=== PATIENT | male | born 1950 | race Caucasian/White ===

== ENCOUNTER → 2016-06-06 13:51 | Outpatient (CLI) | payer MEDICARE, OTHER ==
[~2016-06-06 13:51] MED LIST: EFFEXOR XR150 MG PO; HYDROCODON-ACE1 EAC7 PO; KLONOPIN1 MG PO; NEURONTIN 300300 MG PO; OXYCONTIN10 MG PO; VOLTAREN75 MG PO
[2016-06-25 07:45] VITALS: BMI 30.9
== END | disposition home or self-care (01) ==
LOC: D.MRI 13:51
DX: M25.511 Pain in right shoulder (principal)

== ENCOUNTER 2016-06-25 06:15 | Day surgery (SDC) | payer MEDICARE, OTHER ==
[2016-06-24 13:51] LABS: MCH 30.9 pg (26.0-34.0); MCHC 33.3 g/dL (31.0-37.0); MCV 92.8 fL (80.0-100.0); MEAN PLATELET VOLUME 11.2 fL (7.4-10.4); RBC 4.85 10x6/uL (4.20-6.10); RDW 13.9 % (11.5-14.5); WBC 6.8 10x3/uL (4.8-10.8)
[~2016-06-25] VITALS: Ht 162.6 cm; Wt 81.6 kg
[~2016-06-25 06:15] MED LIST changes: -OXYCONTIN10 MG PO
[2016-06-25 07:45] VITALS: BP 129/81; Ht 162.6 cm; Wt 81.6 kg
[2016-06-25] MEDS ORDERED: OXYCONTIN10 MG PO (10:02)
--- NOTE | 2016-06-25 10:29 | NUR ---
PRE OP BP 150/90
--- NOTE | 2016-06-25 11:15 | NUR ---
1045-RECD FROM PACU. DROWSY, AROUSES EASILY. SLINGSHOT IN PLACE. RESP WITH EASE. 1100-PRESCRIPTION GIVEN TO PER HER REQUEST TO GET FILLED PRIOR TO DISCHARGE.
--- NOTE | 2016-06-25 13:10 | NUR ---
ASSISTED PATIENT TO AMBULATE TO BATHROOM TO VOID, PATIENT AMBULATES WITHOUT UNSTEADINESS OR DIZZINESS. LEFT WRIST PIV DC'D WITH TIP INTACT. PATIENT DRESSING IN PERSONAL CLOTHING WITH SPOUSE'S ASSISTANCE
--- NOTE | 2016-06-25 13:30 | NUR ---
DISCHARGED HOME VIA WHEELCHAIR TO PRIVATE VEHICLE WITH SPOUSE
--- NOTE | 2016-06-25 16:33 | OP ---
PATIENT NAME: LUCA ORTEGA MEDICAL RECORD: [id number] :50 LOCATION:[facility] AD[facility] DATE: SURGEON: CRISTIN LUO MD DATE OF OPERATION: 06/25/2016 PREOPERATIVE DIAGNOSES: Right shoulder rotator cuff tear, acromioclavicular joint degenerative joint disease and impingement. POSTOPERATIVE DIAGNOSES: Right shoulder rotator cuff tear, acromioclavicular joint degenerative joint disease and impingement. PROCEDURE PERFORMED: Right shoulder arthroscopic decompression, distal clavicle excision with open rotator cuff repair. SURGEON: Rocky Luo MD ANESTHESIA: General with interscalene block for postop pain. CONDITION: The patient tolerated the procedure well, was transferred to the recovery room in stable condition at termination of the procedure. INDICATIONS: This is a very pleasant 65-year-old gentleman with a significant supraspinatus tear. This has gotten significantly painful with loss of motion and loss of function. He wanted to go ahead and proceed with a repair. We discussed risks, benefits, and alternatives including blood loss, scar, pain, need for further procedure, anesthesia risks, failure of the repair. He understood and wished to proceed. OPERATIVE REPORT: The patient was taken to the operating room, placed in a supine position. General anesthesia was obtained. His right shoulder was confirmed to be the correct shoulder. He was prepped and draped in normal fashion. He did receive the interscalene block in the preop holding area. In the operating room, he was placed in a beach chair position with the head positioning shoulder device. The right shoulder was then prepped and draped in standard fashion. Again, timeout was performed confirming the right shoulder to be the correct shoulder. Portal sites were then marked. The posterior portal was established. The scope was placed into the posterior portal. The anterior portal was made under direct visualization. The glenohumeral joint was inspected. There was a little bit of fraying in the subscapularis, but overall it was intact. The biceps tendon was intact. The glenoid had some fraying around the rim of the labrum, but otherwise the glenohumeral joint itself looked good. Coming up to the top, there was a very significant, although not retracted supraspinatus tear. I did take the scope out, placed it in the subacromial space, and made a lateral portal, and through the lateral portal, I debrided the soft tissue, down to visualizing the undersurface of the acromion and the AC joint. There was large spurs extending down off both. These were removed with the bur as well as through the anterior portal. I did remove some of the distal clavicle opening the space between the clavicle and the acromion. ____ I extended my lateral portal and split the muscle, went down, and found the cuff tear, debrided the edges of this, roughened up the footprint area, then placed 3 suture punch sutures into the tear, brought these over two 4.5 [place] suture anchors and put this down laterally. This went down very well. When checked, I did not see anything else. I then copiously irrigated, closed with 2-0 Vicryl, then 3-0 Prolene, half inch Steri-Strips and a soft dressing. He was awakened and transferred to recovery room in stable condition, having OPERATIVE REPORT [id number] ORTEGALUCA tolerated the procedure well. We will have him with minimal motion, passive motion, only pendulums and see him back in the office in about 2-3 weeks. TRANSINT:[id number] Voice Confirmation ID: [id number] DOCUMENT ID: [id number] CRISTIN LUO MD at 1633 CC: [id number] DICTATION DATE: 06/25/16 1009 SCREEN PRINTER HELPER: 06/25/16 1202 [facility] [address] [place] [address]
== END 2016-06-25 13:30 | disposition home or self-care (01) ==
LOC: D.OPS 06:15 → D.PAN 08:15 → D.OPS 09:20 → D.PAN 13:00 → D.OPS 13:30
PROVIDERS: Anesthesiology
DX: M75.121 Complete rotator cuff tear or rupture of right shoulder, not specified as traumatic (principal); M75.41 Impingement syndrome of right shoulder; M25.511 Pain in right shoulder; F17.200 Nicotine dependence, unspecified, uncomplicated; J45.909 Unspecified asthma, uncomplicated; G47.30 Sleep apnea, unspecified; K44.9 Diaphragmatic hernia without obstruction or gangrene

== ENCOUNTER → 2016-08-29 19:15 | Outpatient (CLI) | payer MEDICARE, OTHER ==
[2016-06-25 07:45] VITALS: BMI 30.9
[~2016-08-29 19:15] MED LIST changes: +OXYCONTIN10 MG PO
== END | disposition home or self-care (01) ==
LOC: D.SLEEP 19:15
DX: G47.33 Obstructive sleep apnea (adult) (pediatric) (principal)

== ENCOUNTER 2020-07-16 13:03 | Inpatient (IN) | payer MEDICARE, OTHER ==
[~2020-07-16] VITALS: Ht 162.6 cm; Wt 75.0 kg
[2020-07-16 14:17] LABS: BASOPHILS 0.4 % (0-2); EOSINOPHILS 2.1 % (0-7); HEMATOCRIT 46.3 % (42.0-54.0); HEMOGLOBIN 15.2 g/dL (13.5-17.5); LYMPHOCYTE ABS# 2.78 10x3/uL (1.32-3.57); LYMPHOCYTES 38.1 % (15-50); MCH 31.4 pg (26.0-34.0); MCHC 32.8 g/dL (31.0-37.0); MCV 95.7 fL (80.0-100.0); MEAN PLATELET VOLUME 10.9 fL (7.4-10.4); MONOCYTES 6.6 % (2-11); NEUTROPHIL ABS# 3.86 10x3/uL (1.78-5.38); NEUTROPHILS 52.8 % (40-80); PLATELET COUNT 198 10x3/uL (130-400); RBC 4.84 10x6/uL (4.20-6.10); RDW 14.2 % (11.5-14.5); WBC 7.3 10x3/uL (4.8-10.8)
[2020-07-16 14:32] LABS: ANION GAP 14.3 mmol/L (8-16); CALCIUM 8.4 mg/dL (8.5-10.1); CARBON DIOXIDE 25.5 mmol/L (21.0-32.0); CREATININE - SERUM 1.1 mg/dL (0.6-1.3); POTASSIUM - SERUM 3.8 mmol/L (3.5-5.1)
[2020-07-16 14:38] LABS: ALBUMIN 3.7 g/dL (3.4-5.0); BILIRUBIN - TOTAL 0.52 mg/dL (0.2-1.3); PROTEIN - SERUM 6.9 g/dL (6.4-8.2)
[2020-07-16 15:38] VITALS: BP 136/79
--- NOTE | 2020-07-16 15:42 | NUR ---
CALLED PHARMACY REGARING OXYCONTIN ORDER. PHARMACY STATES MED IS LOADED IN MED II PYXIS.
--- NOTE | 2020-07-16 16:10 | NUR ---
ARRIVE TO ROOM VIA WHEELCHAIR FROM ER. AMBULATES TO BED. GAIT STEADY. ALERT AND ORIENTED X4. RT EYE BRUISED. RASH ON RT SIDE HEAD. INITIATE PAIN MANAGEMENT ORDERED. REFUSE SCDs. UP AD SHORTY. CONTINUE ADMISSION PROCESS AND SAFETY PRECAUTIONS.
[2020-07-16 16:16] VITALS: BP 141/76
[2020-07-16] MEDS ORDERED: SYNTHROID25 MCG (16:29)
[2020-07-16] MEDS ORDERED: IPRAT-ALBUT 0.5-3 ML UPD (16:29)
[2020-07-16] MEDS ORDERED: GLUCOPHAGE500 MG PO (16:30)
[2020-07-16 16:42] VITALS: BP 140/72; Ht 162.6 cm; Wt 75.0 kg
--- NOTE | 2020-07-16 20:00 | NUR ---
INITIAL ROUNDS AND ASSESSMENT COMPLETED. PT RESTING IN BED. NO DISTRESS. NONLABORED RESPIRATIONS ON ROOM AIR. SALINE LOCK TO RIGHT A/C. REVIEWED PLAN OF CARE/MEDICATIONS. PT VOICING NEED FOR PAIN MEDS WHEN HIS BEDTIME MEDS ARE GIVEN. CALL LIGHT IN REACH.
--- NOTE | 2020-07-16 22:00 | NUR ---
BEDTIME MEDS GIVEN, PLUS REQUESTED PAIN MEDS FOR CHRONIC PAIN ISSUES. DISCUSSED THAT PT'S EVRY 12 HOUR OXYCONTIN IS SCHEDULED FOR 0400 AND 1600. PT NORMALLY TAKES THIS AM/PM. WILL HAVE TIMES ADJUSTED. PT INSTRUCTED TO CALL IF HE NEEDS ANY ASSISTANCE.
[2020-07-16 22:30] VITALS: BP 146/87
--- NOTE | 2020-07-17 03:29 | NUR ---
RESTING IN BED WITH NO DISTRESS. CALL LIGHT IN REACH.
--- NOTE | 2020-07-17 04:49 | NUR ---
PT RESTING WITH EYES CLOSED. RESP EVEN AND REGULAR. SR UP X2, CALL LIGHT WITHIN REACH.
[2020-07-17 06:07] LABS: BASOPHILS 0 % (0-2); EOSINOPHILS 0 % (0-7); HEMATOCRIT 43.5 % (42.0-54.0); HEMOGLOBIN 14.6 g/dL (13.5-17.5); IMMATURE GRANULOCYTES 0.1 % (0-5); LYMPHOCYTE ABS# 1.34 10x3/uL (1.32-3.57); LYMPHOCYTES 12.7 % (15-50); MCH 31.5 pg (26.0-34.0); MCHC 33.6 g/dL (31.0-37.0); MEAN PLATELET VOLUME 11.3 fL (7.4-10.4); NEUTROPHIL ABS# 9.06 10x3/uL (1.78-5.38); NEUTROPHILS 86.2 % (40-80); PLATELET COUNT 222 10x3/uL (130-400); RBC 4.63 10x6/uL (4.20-6.10); RDW 13.8 % (11.5-14.5)
[2020-07-17 06:20] LABS: WBC 10.5 10x3/uL (4.8-10.8)
[2020-07-17 06:25] LABS: ALBUMIN 3.4 g/dL (3.4-5.0); ALKALINE PHOSPHATASE 85 U/L (30-120); BILIRUBIN - TOTAL 0.46 mg/dL (0.2-1.3); CALCIUM 8.5 mg/dL (8.5-10.1); CARBON DIOXIDE 24.2 mmol/L (21.0-32.0); CHLORIDE - SERUM 106 mmol/L (98-107); POTASSIUM - SERUM 4.3 mmol/L (3.5-5.1); PROTEIN - SERUM 6.6 g/dL (6.4-8.2); SODIUM 140 mmol/L (136-145); UREA NITROGEN 21 mg/dL (7-18); eGFR NON AFRICAN AMERICAN 79 mL/min (90-120)
[2020-07-17 06:26] LABS: ALT (SGPT) 135 U/L (10-68); CALC OSMOLALITY 285 mosm/kg (275-300); GLUCOSE 175 mg/dL (74-106)
--- NOTE | 2020-07-17 07:20 | NUR ---
RECIEVE REPORT. ALERT AND ORIENTED X4. SITTING UP IN BED. REFUSE SCDs. UP AD SHORTY. DENIES ANY NEEDS. CONTINUE PAIN MANAGEMENT ORDERED. CONTINUE PLAN OF CARE AND SAFETY PRECAUTIONS.
[2020-07-17 08:58] VITALS: BP 149/88
--- NOTE | 2020-07-17 14:45 | NUR ---
ALERT AND ORIENTED X4. DC RT AC IV TIP INTACT. DISCHARGE INSTRUCTIONS GIVEN VERBALLY AND WRITTEN. DISCHARGE PAPERS SIGNED ON CHART. ESCORT TO RIDE VIA WHEELCHAIR. REMAINS FREE FROM INJURY.
--- NOTE | 2020-07-18 00:41 | MORECARE ---
CASE MANAGEMENT DISCHARGE SUMMARY PATIENT: LUCA ORTEGA UNIT: [id number] ADM DATE: 07/16/20 AGE: 69 : 50 SEX: M ROOM/BED: D.2124 AUTHOR: YANDEL,DOC PHYSICIAN: REFERRING PHYSICIAN: VENESSA JUNE MD DATE OF SERVICE: 07/18/20 Case Management Discharge Planning Summary CT Patient Name: LUCA ORTEGA Attending MD : VENESSA SANDOVAL Medical Record: [id number] Encounter : [id number] Facility : [id number] [facility] Admission Date : 115:30 Center Discharge Date : 07/17/[address] [place] [address] Date of : DC Plan ID : [id number] Age/Sex/Martia : 69/ M/M Printed on : 07/18/20 0:40 CT DCP Review Details Anticipated D/C: Expected LOS : Case Status : INITIATED - Initial Reviewe: MIGDALIA Mayorga Initial Review: 07/16/2020 Planned Disposi: 01 - Home or Self Care (Routine Discharge) Final Discharge: 01 - Home or Self Care (Routine Discharge) Final Reviewer : MIGDALIA : Sena Mayorga Final Review : 07/17/2020 DCP Focus Questions & Answers [facility] LUCA ORTEGA MR#: [id number] /Age/Sex/Bexipa23-Vad-58 /69/M /M Attending Physician Name: VENESSA JUNE [id number] Patient Account:[id number] [facility] Page -1 of 1 All edits/amendments must be made on the electronic document DICTATION DATE: 07/18/2039 CARPET TECHNICIAN: DM 07/18/2039 RPT#: [id number] DC DATE:07/17/20 STATUS: DIS IN [address] [address] END OF REPORT
--- NOTE | 2020-07-18 04:10 | MORECARE ---
CASE MANAGEMENT DISCHARGE SUMMARY PATIENT: LUCA ORTEGA UNIT: [id number] ADM DATE: 07/16/20 AGE: 69 : 50 SEX: M ROOM/BED: D.2124 AUTHOR: YANDEL,DOC PHYSICIAN: REFERRING PHYSICIAN: VENESSA JUNE MD DATE OF SERVICE: 07/18/20 Case Management Discharge Planning Summary CT Patient Name: LUCA ORTEGA Attending MD : VENESSA SANDOVAL Medical Record: [id number] Encounter : [id number] Facility : [address] [place] [address] Medical Admission Date : 115:30 Center Discharge Date : 07/17/[address] [place] [address] Date of : DC Plan ID : [id number] Age/Sex/Martia : 69/ M/M Printed on : 07/18/20 4:09 [address] DCP Review Details Anticipated D/C: Expected LOS : Case Status : INITIATED - Initial Reviewe: [id number] - Sena Mayorga Initial Review: 07/16/2020 Planned Disposi: 01 - Home or Self Care (Routine Discharge) Final Discharge: 01 - Home or Self Care (Routine Discharge) Final Reviewer : [id number] : Sena Mayorga Final Review : 07/17/[address] Entered Date Type Reviewer 07/18/20 4:04 CT Discharge Planning Sena Mayorga Comment CM spoke with patient to complete initial dc planning assessment. CM educated patient on the CM role and verbal consent given by patient to complete assessment. Patient lives at home with family. Patient is independent. At discharge patient plans to return home and feels this is a safe discharge. CM discussed availability of home health, rehab services, and medical equipment. Patient will have family to transport home. Patient denied known discharge needs at this time. CM will continue to follow and will assist as needed with dc plans/needs. DCP Focus Questions & Answers DCP Screen Age: 65 - 79 Prior living environment: Lives with others DCP Evaluation Patient's ability to cope with chronic illness d. No chronic illness Living Arrangements: Home Alone with Support Does Patient have transportation to get home and Yes to follow-up medical appointments when discharged from the hospital? Would patient like to participate in any Care Not applicable Coordination programs (if applicable): Does the patient have electricity at home? Yes Does the patient have running water in their Yes house? Mental health screen: No mental health history DCP Re-evaluation Would patient like to participate in any Care Not applicable Coordination programs (if applicable): [facility] LUCA ORTEGA MR#: [id number] /Age/Sex/Nllmvf95-Sqm-22 /69/M /M Attending Physician Name: VENESSA JUNE [id number] Patient Account:[id number] [facility] Page -1 of 1 All edits/amendments must be made on the electronic document DICTATION DATE: 07/18/20408 ONYX CHIP TERRAZZO WORKER: PAGE 07/18/20408 RPT#: [id number] DC DATE:07/17/20 STATUS: DIS IN [facility] [address] [place] [address] END OF REPORT
== END 2020-07-17 14:47 | disposition home or self-care (01) | DRG 125 ==
LOC: D.ER 13:03 → D.M2 15:30
PROVIDERS: Family Medicine; ADMIT Emergency Medicine; ATTEND Emergency Medicine
DX: B02.30 Zoster ocular disease, unspecified (principal); R74.01 Elevation of levels of liver transaminase levels; G89.29 Other chronic pain; F32.9 Major depressive disorder, single episode, unspecified; F41.9 Anxiety disorder, unspecified